=== PATIENT | male | born 1935 | race Caucasian/White ===

== ENCOUNTER 2023-12-21 17:58 | Emergency (ER) | payer MEDICARE | END 2023-12-21 20:32 | disposition home or self-care (01) | LOC: ERS 17:58 | DX: M79.89 Other specified soft tissue disorders (principal); I10 Essential (primary) hypertension; Z86.73 Personal history of transient ischemic attack (TIA), and cerebral infarction without residual deficits ==

== ENCOUNTER 2024-10-10 13:42 | Outpatient (CLI) | payer MEDICARE | END 2024-10-10 13:43 | disposition home or self-care (01) | LOC: ULT 13:42 | PROVIDERS: ATTEND Family Medicine | DX: N18.4 Chronic kidney disease, stage 4 (severe) (principal) | CPT/HCPCS: 76770 ==